=== PATIENT | male | born 1965 | race American Indian/Alaskan Native ===

== ENCOUNTER 2016-05-29 05:45 | Day surgery (SDC) | payer OTHER ==
--- NOTE | 2016-05-29 07:16 | Anesthesia Consultation ---
Anesthesia Consult and Med Hx Date of service: 05/29/16 - Airway Anesthetic Teeth Evaluation: Good ROM Head & Neck: Adequate Mental/Hyoid Distance: Adequate Mallampati Class: Class II Intubation Access Assessment: Good - Pulmonary Exam CTA: Yes - Cardiac Exam Cardiac Exam: RRR - Pre-Operative Health Status ASA Pre-Surgery Classification: ASA1 Proposed Anesthetic Plan: General - Pulmonary Hx Smoking: No Hx Asthma: No Hx Sleep Apnea: No - Cardiovascular System Hx Hypertension: No - Central Nervous System Hx Seizures: No Hx Psychiatric Problems: No - Gastrointestinal Hx Gastroesophageal Reflux Disease: No - Endocrine Hx Non-Insulin Dependent Diabetes: No - Hematic Hx Anemia: No - Other Systems Hx Alcohol Use: Yes (OCCASIONALLY) Hx Substance Use: No Hx Cancer: No Hx Obesity: No
[2016-05-29] MEDS ORDERED: SUBLIMAZE ONE (07:41)
[2016-05-29] MEDS ORDERED: DIPRIVAN 10 MG/ML IV ONE ×2 (07:41→09:57)
[2016-05-29] MEDS ORDERED: LACTATED RINGERS 1,000 ML IV SCH (08:00)
[2016-05-29] MEDS ORDERED: PEPCID PO NR (08:00)
[2016-05-29] MEDS ORDERED: ANCEF/STERILE WATER 2 GM/20 ML IV NR (08:00)
[2016-05-29] MEDS ORDERED: VERSED IV NR (08:00)
[2016-05-29] MEDS ORDERED: XYLOCAINE MPF 2% ONE (08:55)
[2016-05-29] MEDS ORDERED: ZOFRAN ONE (09:11)
--- NOTE | 2016-05-29 09:24 | Short Stay Summary ---
Short Stay Documentation Date of service: 05/29/16 - History H&P: obtained from office - Allergies and Medications Current Medications: Allergies No Known Allergies Allergy (Unverified 10/02/15 15:55) Home Medications Medication Instructions Recorded Confirmed Last Taken Type Tadalafil [Cialis] 1 tab PO PRN PRN 10/02/15 05/23/16 10/18/15 History Active Medications Cefazolin Sodium (Ancef/Sterile Water 2 Gm/20 Ml) 2 gm IV PREOP NR Stop: 05/29/16 23:59 Famotidine (Pepcid) 20 mg PO PREOP NR Stop: 05/29/16 23:59 Last Admin: 05/29/16 07:40 Dose: 20 mg Lactated Ringer's (Lactated Ringers) 1,000 mls @ 100 mls/hr IV DIRECT JAQUAN Last Admin: 05/29/16 07:45 Dose: 100 mls/hr Midazolam HCl (Versed) 2 mg IV PREOP NR Stop: 05/29/16 23:59 Last Admin: 05/29/16 07:45 Dose: 2 mg - Physical exam General appearance: no acute distress - Brief post op/procedure progress note Date of procedure: 05/29/16 Pre-op diagnosis: left renal 8mm Post-op diagnosis: same Procedure: left renal eswl Anesthesia: GETA Findings: fair vis Surgeon: HALLIE CLINTON Estimated blood loss: minimal Pathology: none Condition: stable - Hospital course Hospital course: or pacu home - Disposition Condition at discharge: Good Disposition: DISCHARGED TO HOME OR SELFCARE Short Stay Discharge Plan Activity: advance as tolerated Diet: advance as tolerated Follow up with: SOFI HAYES MD [Staff Physician] - 7 Days
--- NOTE | 2016-05-29 10:25 | Operative Report ---
PREOPERATIVE DIAGNOSIS: Left renal stone. POSTOPERATIVE DIAGNOSIS: Left renal stone. PROCEDURE: Left renal ESWL. SURGEON: Margarito Sandoval MD ANESTHESIA: General. SPECIMENS: None. ESTIMATED BLOOD LOSS: Minimal. COMPLICATIONS: None. FINDINGS: Fair visualization of the stone in the lower pole, correlated with the CT report. DESCRIPTION OF PROCEDURE: A total of 2500 shocks were delivered. During the procedure, there was significant less density and some difficult visualization persisted fragments intermittent repositioning as necessary. At the end of the procedure, minimal residual density. The patient was awakened and transferred to the PACU in good and stable condition. JOB# [id number] ATS/NTS
--- NOTE | 2016-05-29 11:14 | Post Anesthesia Evaluation ---
- Post Anesthesia Evaluation Patient Participated: Yes Airway Patent: Yes Stable Respiratory Function: Yes Nausea/Vomiting: No Temp > 96.8F: Yes Pain Manageable: Yes Adequeate Hydration: Yes Anesthesia Complications: No Block Receding Appropriately: Not Applicable Patient on Ventilator: No
--- NOTE | 2016-05-29 11:14 | Anesthesia Day of Surgery ---
Anesthesia Day of Surgery - Day of Surgery Patient Examined: Yes Patient H&P Reviewed: Yes Patient is NPO: Yes
[2016-05-29 13:35] VITALS: BP 139/81
== END 2016-05-29 12:00 | disposition home or self-care (01) ==
LOC: OR 05:45
PROVIDERS: ATTEND Urology
DX: N20.0 Calculus of kidney (principal); I10 Essential (primary) hypertension; Z72.89 Other problems related to lifestyle
CPT/HCPCS: 50590; J0690; J2250; J2405; J2704; J3010; J7120